=== PATIENT | male | born 1985 | race Caucasian/White ===

== ENCOUNTER 2021-05-31 09:44 | Emergency (ER) | payer MEDICAID ==
[2021-05-31] MEDS ORDERED: Ibuprofen 800 MG TAB ONE (10:11)
== END 2021-05-31 10:16 | disposition home or self-care (01) ==
LOC: ERS 09:44
DX: H66.92 Otitis media, unspecified, left ear (principal); R11.2 Nausea with vomiting, unspecified; I10 Essential (primary) hypertension
CPT/HCPCS: 99283